=== PATIENT | female | born 1980 | race Two or more races ===

== ENCOUNTER → 2016-09-06 | Outpatient (CLI) | payer OTHER ==
[2016-09-06 17:18] LABS: PROLACTIN 9.3 NG/ML
[2016-09-06 18:33] LABS: FREE T4 0.96 NG/DL (0.76-1.46)
[2016-09-06 19:27] LABS: BASO % 0.1 % (0.0-1.0); EOS # 0.2 K/mm3 (0.0-0.50); LARGE UNSTAINED CELL # 0.2 K/mm3 (0.0-0.4); LARGE UNSTAINED CELL % 2.1 % (0.0-4.0); LYMPH # 2.8 K/mm3 (1.5-4.5); LYMPH % 31.7 % (24.0-44.0); MEAN CORPUSCULAR HEMOGLOBIN 24.2 pg (27.0-33.0); MEAN CORPUSCULAR HGB CONC 29.7 g/dl (32.0-36.5); MEAN CORPUSCULAR VOLUME 81.6 fl (80.0-96.0); MONO # 0.4 K/mm3 (0.0-0.8); MONO % 4.1 % (0.0-5.0); NEUTROPHILS # 5.4 K/mm3 (1.8-7.7); PLATELET COUNT, AUTOMATED 404 k/mm3 (150-450); RED CELL DISTRIBUTION WIDTH 13.9 % (11.5-14.5)
[2016-09-06 19:33] LABS: ADD MORPHOLOGY? YES
[2016-09-06 20:38] LABS: HYPOCHROMASIA 2+; OVALOCYTES 1+; POIKILOCYTOSIS 1+; POLYCHROMASIA 1+
== END ==
LOC: M WUC 10:32
PROVIDERS: ATTEND Nurse Practitioner Women's Health
DX: N92.1 Excessive and frequent menstruation with irregular cycle (principal)

== ENCOUNTER → 2017-06-18 | Outpatient (CLI) | payer OTHER ==
[2017-06-18 16:28] LABS: PROLACTIN 8.7 NG/ML
[2017-06-18 16:38] LABS: FREE T4 0.86 NG/DL (0.76-1.46)
== END ==
LOC: M WUC 13:57
DX: Z01.419 Encounter for gynecological examination (general) (routine) without abnormal findings (principal); N92.0 Excessive and frequent menstruation with regular cycle
CPT/HCPCS: 84146

== ENCOUNTER → 2019-02-12 | Outpatient (CLI) | payer OTHER ==
--- NOTE | 2019-02-13 10:58 | REP ---
Clinical: Abnormal menstrual cycle. Menorrhagia . Technique: Transabdominal pelvic ultrasound followed by transvaginal examination for better evaluation of the endometrium and adnexa with color Doppler evaluation of the ovaries. Findings: Bladder is unremarkable and measures 6.9 x 4.9 x 5.9 cm . Heterogeneous anteverted uterus measures 9.1 x 4.4 x 6.9 cm with a 4.6 x 4.1 x 6.5 cm anterior/fundal submucosal fibroid. The endometrial complex measures 7.7 mm thickness. Bilateral ovaries are normal in appearance with bilateral follicles noted. Right ovary measures 3.0 x 2.5 x 2.8 cm ; Left ovary measures 3.9 x 2.4 x 2.8 cm. No pelvic fluid or adnexal mass lesion . Impression: 1. Large submucosal fibroid. Electronically Signed by Terrance Welch MD 02/13/2019 10:49 A
== END ==
LOC: M RAD 10:34
PROVIDERS: ATTEND Nurse Practitioner Women's Health
DX: N92.1 Excessive and frequent menstruation with irregular cycle (principal)

== ENCOUNTER 2019-06-20 06:21 | Day surgery (SDC) | payer OTHER ==
[2019-06-20] VITALS (18 sets, daily range): BP systolic 85–133; BP diastolic 49–79
[~2019-06-20] VITALS: Ht 157.5 cm; Wt 73.5 kg
[~2019-06-20 06:21] MED LIST: LIDOCAINE 1% MDV 20ML VIAL SQ PRN; LR 1,000 ML IV ONE; PRED20TA PO
[2019-06-20 06:54] LABS: HEMATOCRIT 21.7 % (36.0-47.0); MEAN CORPUSCULAR HEMOGLOBIN 14.3 pg (27.0-33.0); PLATELET COUNT, AUTOMATED 199 10^3/uL (150-450); WHITE BLOOD COUNT 6.3 10^3/uL (4.0-10.0)
[2019-06-20] MEDS ORDERED: BUPIVACAINE HCL 0.25% 30ML VIAL As Ordered ONE (07:10)
[2019-06-20] MEDS ORDERED: VASOPRESSIN INJ 20 UNITS/ML VIAL As Ordered ONE (07:10)
[2019-06-20] MEDS ORDERED: ACETAMINOPHEN 1000MG 100ML IV BTL (OFIRMEV) (J0131 PER 10MG) As Ordered ONE (07:15)
[2019-06-20] MEDS ORDERED: ROCURONIUM BROMIDE 50 MG/5 ML VIAL As Ordered ONE (07:15)
[2019-06-20] MEDS ORDERED: SUGAMMADEX SODIUM 500 MG/5 ML VIAL (BRIDION) As Ordered ONE (07:15)
[2019-06-20] MEDS ORDERED: propofoL 200 MG/20 ML VIAL As Ordered ONE (07:15)
[2019-06-20] MEDS ORDERED: dexameTHASONE 4 MG/ML 1ML VIAL (J1100) As Ordered ONE (07:15)
[2019-06-20] MEDS ORDERED: ONDANSETRON 4MG/2ML VIAL (J2405) As Ordered ONE (07:15)
[2019-06-20] MEDS ORDERED: KETOROLAC 60 MG/2 ML VIAL (J1885) As Ordered ONE (07:15)
[2019-06-20] MEDS ORDERED: LIDOCAINE 2% INJ 100 MG/5 ML SDV (FOR ANES.) As Ordered ONE (07:15)
[2019-06-20] MEDS ORDERED: MIDAZOLAM INJ 2 MG/2 ML VIAL (J2250) As Ordered ONE (07:16)
[2019-06-20] MEDS ORDERED: fentaNYL 100 MCG/2 ML INJECTION (J3010) As Ordered ONE (07:16)
[2019-06-20 07:54] LABS: HEMATOCRIT 21.7 % (36.0-47.0); MEAN CORPUSCULAR HGB CONC 22.6 g/dl (32.0-36.5); PLATELET COUNT, AUTOMATED 210 10^3/uL (150-450); WHITE BLOOD COUNT 5.6 10^3/uL (4.0-10.0)
[2019-06-20 08:03] LABS: HEMOGLOBIN 4.9 g/dl (12.0-15.5)
[2019-06-20 12:34] LABS: HEMATOCRIT 28.3 % (36.0-47.0); MEAN CORPUSCULAR HGB CONC 27.2 g/dl (32.0-36.5); MEAN CORPUSCULAR VOLUME 69.7 fl (80.0-96.0); PLATELET COUNT, AUTOMATED 180 10^3/uL (150-450); RED BLOOD COUNT 4.06 10^6/uL (4.00-5.40); WHITE BLOOD COUNT 5.8 10^3/uL (4.0-10.0)
[2019-06-20 12:50] LABS: HEMOGLOBIN 7.7 g/dl (12.0-15.5)
[2019-06-20] MEDS ORDERED: HYDROmorphone HCL 2 MG/ML 1ML VIAL (J1170) As Ordered ONE (14:39)
[2019-06-20] MEDS ORDERED: oxyCODONE 5MG TAB As Ordered ONE (16:29)
[2019-06-20] MEDS ORDERED: HYDROMORPHONE HCL 0.5 MG/ 0.5 ML SYRINGE (J1170 PER 1) IV PRN (16:45)
[2019-06-20] MEDS ORDERED: LR 1,000 ML IV SCH ×2 (16:45→17:46)
[2019-06-20] MEDS ORDERED: oxyCODONE 5MG TAB PO PRN (16:45)
[2019-06-20] MEDS ORDERED: ONDANSETRON 4MG/2ML VIAL (J2405) IV PRN ×2 (16:45→17:46)
[2019-06-20] MEDS ORDERED: fentaNYL 100 MCG/2 ML INJECTION (J3010) IV PRN (16:45)
[2019-06-20] MEDS ORDERED: OXYC1TAB23 PO (16:53)
[2019-06-20] MEDS ORDERED: IBUP-1022 PO (16:54)
[2019-06-20] MEDS ORDERED: PERCOCET 5MG/325MG TAB PO PRN ×2 (17:46)
[2019-06-20] MEDS: DOCUSATE SODIUM 100 MG CAP PO SCH (20:16)
[2019-06-20] MEDS: KETOROLAC 30 MG/ML VIAL (J1885) IV PRN (22:10)
[2019-06-21 03:00] VITALS: BP 130/69
[2019-06-21] MEDS: KETOROLAC 30 MG/ML VIAL (J1885) IV PRN (07:36)
[2019-06-21] MEDS: DOCUSATE SODIUM 100 MG CAP PO SCH (07:37)
[2019-06-21 07:45] LABS: HEMATOCRIT 31.2 % (36.0-47.0); HEMOGLOBIN 8.8 g/dl (12.0-15.5); MEAN CORPUSCULAR HEMOGLOBIN 19.8 pg (27.0-33.0); MEAN CORPUSCULAR HGB CONC 28.2 g/dl (32.0-36.5); MEAN CORPUSCULAR VOLUME 70.3 fl (80.0-96.0); PLATELET COUNT, AUTOMATED 164 10^3/uL (150-450); RED BLOOD COUNT 4.44 10^6/uL (4.00-5.40); WHITE BLOOD COUNT 6.9 10^3/uL (4.0-10.0)
[2019-06-21 08:00] VITALS: BP 100/57
--- NOTE | 2019-06-23 11:08 | RO ---
DATE OF OPERATION: 06/20/2019 PREOPERATIVE DIAGNOSES: 1. Symptomatic fibroid uterus. 2. Severe anemia. POSTOPERATIVE DIAGNOSES: 1. Symptomatic fibroid uterus. 2. Severe anemia. PROCEDURE: Robotic assisted laparoscopic myomectomy. SURGEON: Crow Jimenez MD LAB ANALYST: ANESTHESIA: General endotracheal. ESTIMATED BLOOD LOSS: 100 mL. URINE OUTPUT: 100 mL. FLUIDS: 1800 mL of Lactated Ringer's. FINDINGS: 6-7 cm submucosal uterine fibroid, otherwise normal appearing uterus. There normal uterus, fallopian tubes and ovaries. Normal upper abdomen. OPERATIVE SUMMARY: Patient taken to the operating room where general endotracheal anesthesia was induced. She was prepped and draped in a sterile fashion in dorsal lithotomy position. A Moon catheter was placed. A Yodo1 uterine manipulator was placed. A periumbilical incision was made with a scalpel. A Veress needle was placed through this incision while tenting up on the abdomen. Intra-abdominal location of the Veress needle with the use of a saline filled syringe. Pneumoperitoneum was created. The Veress needle was removed. 8 mm trocar using Visiport was inserted. Three 8 mm suprapubic ports were placed under direct visualization. The patient was placed in Trendelenburg position. The da Andrews surgical robot was docked to the ports. Using the fenestrated bipolar instrument and the monopolar Endo Fabián a linear incision was created over the area with best access to the fibroid and the posterior uterus. Monopolar Endo Fabián were used to dissect down to the level of the fibroid. The edges of the uterine muscularis were grasped and elevated to dissect the fibroid out further. Laparoscopic tenaculum was used to grasp the fibroid and place traction on it. By manipulating the fibroid in different directions, the muscular attachments to the fibroid were taken down with a combination of blunt and sharp dissection. The fibroid was removed in its entirety. The base of the uterine smooth muscle was closed in two layers with running 2 and #2 V-Loc suture. The second layer incorporated the serosa of the uterus. Good hemostasis was noted. The da Andrews robot was undocked. The periumbilical port was removed and the incision extended in a vertical fashion. The fascia was also extended. A Mini GelPOINT was placed through this incision. The fibroid was placed in an Endo Catch bag and withdrawn through the umbilical incision. The fascia, the umbilicus and the periumbilical incision was closed with #0 Vicryl in a running fashion. The deep layer was also closed with Vicryl. The skin was closed with #4-0 Monocryl subcuticular sutures after all instruments were removed. Sponge, instrument and needle counts were correct. The patient was extubated and went to the recovery room in stable condition.
== END 2019-06-21 10:02 | disposition home or self-care (01) ==
LOC: M SDC 06:21 → M PED 17:55 → M SDC 06-21 10:02
PROVIDERS: ATTEND Specialist
DX: D25.9 Leiomyoma of uterus, unspecified (principal); K21.9 Gastro-esophageal reflux disease without esophagitis; Z79.52 Long term (current) use of systemic steroids; R21 Rash and other nonspecific skin eruption; F17.218 Nicotine dependence, cigarettes, with other nicotine-induced disorders; Z88.2 Allergy status to sulfonamides
CPT/HCPCS: 36415; 36430; 58545; 81025; 85027; 86850; 86900; 86901; 86920; 88305; 96374; 96376; J0131; J1100; J1170; J1885; J2250; J2405; J3010; P9016

== ENCOUNTER → 2023-02-13 | Outpatient (REF) | payer OTHER, BC ==
[~2023-02-13] MED LIST changes: +IBUP-1022 PO; -LIDOCAINE 1% MDV 20ML VIAL SQ PRN; -LR 1,000 ML IV ONE; +OXYC1TAB23 PO
== END ==
LOC: M LAB REF 14:30
PROVIDERS: ATTEND Nurse Practitioner Adult Health
DX: Z11.4 Encounter for screening for human immunodeficiency virus [HIV] (principal)

== ENCOUNTER → 2023-07-09 | Outpatient (CLI) | payer BC | LOC: M WHC 07:19 | PROVIDERS: ATTEND Nurse Practitioner Adult Health | DX: Z12.31 Encounter for screening mammogram for malignant neoplasm of breast (principal) ==